=== PATIENT | female | born 1995 | race Two or more races ===

== ENCOUNTER 2016-07-15 23:48 | Emergency (ER) | payer OTHER ==
[2016-07-16] MEDS ORDERED: Naproxen 500 MG TAB ONE (00:34)
[2016-07-16] MEDS ORDERED: HYDROcodone/Acetaminophen 10/325 mg Tablet ONE (00:34)
[2016-07-16] MEDS ORDERED: Morphine Sulfate 2 MG/ML SYRINGE ONE (00:59)
[2016-07-16] MEDS ORDERED: Ondansetron ODT 4 MG TAB ONE (01:00)
--- NOTE | 2016-07-16 07:54 | RAD ---
SINGLE AP VIEW OF THE PELVIS: INDICATION: Right hip pain without trauma. COMPARISON: None. IMPRESSION: The pelvis appears radiographically normal. No acute fracture or subluxation is noted. POS: [facility]
--- NOTE | 2016-07-16 07:57 | RAD ---
RIGHT HIP 2 VIEWS: Date: 07/16/16 HISTORY: Hip pain. FINDINGS: Femoral head appears normally maintained. Hip joint appears normal. No fracture. No osseous lesion s een. IMPRESSION: Unremarkable right hip. POS: [facility]
== END 2016-07-16 01:35 | disposition home or self-care (01) ==
LOC: MADERS 23:48
DX: M25.551 Pain in right hip (principal); M13.852 Other specified arthritis, left hip; M13.851 Other specified arthritis, right hip
CPT/HCPCS: 72170; 96372; J2270; Q0162

== ENCOUNTER 2017-04-27 05:59 | Outpatient (CLI) | payer OTHER ==
--- NOTE | 2017-04-27 08:45 | RAD ---
TWO VIEWS RIGHT HIP: HISTORY: Right hip pain. No trauma. FINDINGS: AP and frogleg views right hip were obtained. Two views right hip demonstrate no evidence of right hip fractures, subluxations, or bony lesions. IMPRESSION: Normal 2 views right hip. POS: [facility]
--- NOTE | 2017-04-27 08:46 | RAD ---
TWO VIEWS LEFT HIP: History: Chronic left hip pain for one year. FINDINGS: AP and frogleg views of the left hip demonstrates no evidence of left hip fractures, subluxations, or bony lesions. IMPRESSION: Normal two views left hip. POS: [facility]
== END 2017-04-27 06:00 | disposition home or self-care (01) ==
LOC: MADRAD 05:59
PROVIDERS: ATTEND Orthopaedic Surgery
DX: M13.80 Other specified arthritis, unspecified site (principal)